=== PATIENT | female | born 1990 | race American Indian/Alaskan Native ===

== ENCOUNTER 2017-01-15 15:47 | Emergency (ER) | payer SELFPAY ==
[2017-01-15 17:44] LABS: Bilirubin,Urine NEG (Negative); Blood,Urine MOD (Negative); Ketones,Urine NEG (Negative); Leukocyte Esterase,Urine NEG (Negative); Mucus,Urine FEW /HPF; Nitrite,Urine NEG (Negative); Protein,Urine <15 mg/dL mg/dL (Negative); Urobilinogen,Urine < 2.0 mg/dL (<2.0)
[2017-01-16] MEDS ORDERED: TYLENOL PO ONE (01:26)
[2017-01-16] MEDS ORDERED: MOTRIN PO ONE (01:26)
--- NOTE | 2017-01-16 01:27 | Emergency Department Report ---
ED General Adult HPI - General Chief complaint: Urogenital-Female Stated complaint: LT SIDE/HIP PAIN Time Seen by Provider: 01/16/17 01:19 Source: patient, RN notes reviewed Mode of arrival: Ambulatory Limitations: No Limitations - History of Present Illness Initial comments: This is a 26-year-old female. She is previously unknown to me. She does not have a primary care doctor. She denies chronic medical conditions. She presents to the ER with left lower quadrant pain and left groin pain for the past 2-3 days. The patient is described as pressure-like in nature. It does not radiate anywhere. It increases with palpation the left lower quadrant, somewhat increases when she rotates her left hip internally and externally. There is no right lower quadrant pain. Denies dysuria, urinary hesitancy, urinary frequency. Admits to clearish vaginal discharge. There is no nausea, vomiting or diarrhea. There is no chest pain or shortness of breath. The patient reports being sexually active with one male partner, she denies a history of gonorrhea and/or Chlamydia. -: Gradual Location: pelvis Severity scale (0 -10): 5 Quality: aching Consistency: intermittent Improves with: rest Worsens with: movement Associated Symptoms: denies: confusion, chest pain, cough, diaphoresis, fever/ chills, headaches, loss of appetite, malaise, nausea/vomiting, rash, seizure, shortness of breath, syncope, weakness - Related Data Previous Rx's Medication Instructions Recorded Last Taken Type Ketorolac [Toradol] 10 mg PO Q6H PRN #20 tablet 01/16/17 Unknown Rx Ondansetron [Zofran Odt] 4 mg PO QID PRN #20 tab.rapdis 01/16/17 Unknown Rx Allergies Allergy/AdvReac Type Severity Reaction Status Date / Time No Known Allergies Allergy Unverified 01/15/17 17:03 ED Review of Systems ROS: Stated complaint: LT SIDE/HIP PAIN Other details as noted in HPI Constitutional: denies: fever Eyes: denies: vision change ENT: denies: epistaxis Respiratory: denies: cough Cardiovascular: denies: chest pain Gastrointestinal: abdominal pain Genitourinary: discharge Musculoskeletal: denies: back pain Skin: denies: lesions Neurological: denies: weakness Psychiatric: denies: anxiety ED Past Medical Hx - Past Medical History Previous Medical History?: No - Surgical History Additional Surgical History: 3 C-Sections - Social History Smoking Status: Never Smoker Substance Use Type: None - Medications Home Medications: Home Medications Medication Instructions Recorded Confirmed Last Taken Type Ketorolac [Toradol] 10 mg PO Q6H PRN #20 tablet 01/16/17 Unknown Rx Ondansetron [Zofran Odt] 4 mg PO QID PRN #20 tab.rapdis 01/16/17 Unknown Rx ED Physical Exam - General Limitations: No Limitations General appearance: alert, in no apparent distress - Head Head exam: Present: atraumatic, normocephalic - Eye Eye exam: Present: normal appearance, EOMI. Absent: nystagmus - ENT ENT exam: Present: normal exam, normal orophraynx, mucous membranes moist, normal external ear exam - Neck Neck exam: Present: normal inspection, full ROM. Absent: tenderness, meningismus - Respiratory Respiratory exam: Present: normal lung sounds bilaterally. Absent: respiratory distress, wheezes, rales, rhonchi, stridor, chest wall tenderness, accessory muscle use, decreased breath sounds, prolonged expiratory - Cardiovascular Cardiovascular Exam: Present: regular rate, normal rhythm, normal heart sounds. Absent: bradycardia, tachycardia, irregular rhythm, systolic murmur, diastolic murmur, rubs, gallop - GI/Abdominal GI/Abdominal exam: Present: soft, tenderness (there is minimal left lower quadrant tenderness to deep palpation. There is no right lower quadrant tenderness. There is no rebound, guarding or peritoneal signs.), normal bowel sounds. Absent: distended, guarding, rebound, rigid, organomegaly, bruit, pulsatile mass, hernia - External exam: Present: normal external exam Speculum exam: Present: normal speculum exam. Absent: cervical discharge, vaginal bleeding Bi-manual exam: Present: normal bi-manual exam, adnexal tenderness (there is left-sided adnexal tenderness.), other (during the gynecologic examination, I am escorted by ER nurse Genoveva Barger). Absent: cervical motion tendernes - Extremities Exam Extremities exam: Present: normal inspection, full ROM, normal capillary refill , other (patient has full active and passive range of motion of the bilateral hips.). Absent: tenderness, pedal edema, joint swelling, calf tenderness - Back Exam Back exam: Present: normal inspection, full ROM. Absent: tenderness, CVA tenderness (R), CVA tenderness (L), muscle spasm, paraspinal tenderness, vertebral tenderness - Neurological Exam Neurological exam: Present: alert, oriented X3, normal gait, other (Extraocular movements intact. Tongue midline. No facial droop. Facial sensation intact to light touch in the V1, V2, V3 distribution bilaterally. 5 and 5 strength in 4 extremities.. Sensation is intact to light touch in 4 extremities.). Absent : motor sensory deficit - Psychiatric Psychiatric exam: Present: normal affect, normal mood - Skin Skin exam: Present: warm, dry, intact, normal color. Absent: rash ED Course Vital Signs 01/15/17 01/15/17 01/16/17 16:57 22:56 00:05 Temperature 98.8 F 98.2 F Pulse Rate 88 70 76 Respiratory 18 18 16 Rate Blood Pressure 116/76 171/66 Blood Pressure 113/64 [Right] O2 Sat by Pulse 100 100 100 Oximetry 01/16/17 01/16/17 02:00 03:41 Temperature Pulse Rate 78 74 Respiratory 16 16 Rate Blood Pressure Blood Pressure 118/72 116/74 [Right] O2 Sat by Pulse 98 98 Oximetry - Reevaluation(s) Reevaluation #1: 01/16/17 02:29 differential diagnosis: , constipation, urinary tract infection, ovarian cyst, ovarian torsion, pelvic inflammatory disease, endometriosis Assessment and plan: 26-year-old female with left groin pain, left adnexal tenderness, left lower quadrant tenderness. She is afebrile with reassuring vital signs. She is not . Her urinalysis is not consistent with urinary tract infection. There is no right lower quadrant tenderness, rebound or guarding. Her clinical history is not consistent with constipation, she reports defecating and passing gas normally. I think pelvic inflammatory disease is unlikely, she does not have cervical motion tenderness, and she does not have cervical discharge. Her wet prep is negative. I think ovarian torsion is unlikely, she does not have exquisite tenderness. Most likely has ovarian cyst. She will be treated symptomatically. Transvaginal ultrasound with duplex interrogation is ordered. Results are pending. Reevaluation #2: 01/16/17 03:13 Transvaginal ultrasound demonstrates complex ovarian mass and lesions. The patient feels improved after her pain medication. She will be discharged with pain medication, a copy of her ultrasound report, and she is instructed to follow up with outpatient gynecology. Return precautions are extensively reviewed. ED Medical Decision Making - Lab Data Vital Signs 01/15/17 01/15/17 01/16/17 16:57 22:56 00:05 Temperature 98.8 F 98.2 F Pulse Rate 88 70 76 Respiratory 18 18 16 Rate Blood Pressure 116/76 171/66 Blood Pressure 113/64 [Right] O2 Sat by Pulse 100 100 100 Oximetry Lab Results 01/15/17 Range/Units 17:29 Urine Color Yellow (Yellow) Urine Turbidity Clear (Clear) Urine pH 6.0 (5.0-7.0) Ur Specific [place] 1.018 (1.003-1.030) Urine Protein <15 mg/dl (Negative) mg/dL Urine Glucose (UA) Neg (Negative) mg/dL Urine Ketones Neg (Negative) mg/dL Urine Blood Mod (Negative) Urine Nitrite Neg (Negative) Ur Reducing Substances Not Reportable Urine Bilirubin Neg (Negative) Urine Ictotest Not Reportable Urine Urobilinogen < 2.0 (<2.0) mg/dL Ur Leukocyte Esterase Neg (Negative) Urine WBC (Auto) 1.0 (0.0-6.0) /HPF Urine RBC (Auto) 1.0 (0.0-6.0) /HPF U Epithel Cells (Auto) 7.0 (0-13.0) /HPF Urine Mucus Few /HPF Urine HCG, Qual Negative (Negative) - Radiology Data Radiology results: report reviewed, image reviewed Transvaginal ultrasound: The right ovary appears to be within normal limits. The left ovary is 5 x 4 x 4.7 cm. 2 complex mass lesions noted within the left ovary. The largest is 3.7 cm. The other measures 2.7 cm. They are partially rounded but also partially irregular. Somewhat hypoechoic, they have internal echoes and mixed internal echogenicity, possibly some internal septations. Therefore, they're not simple cyst. May be hemorrhagic or debris filled cyst. Or mixed cystic and solid lesions of other etiologies are not excluded. Moderate amount of nonspecific free fluid noted in the pelvis. No ultrasound abnormalities noted. Critical care attestation.: If time is entered above; I have spent that time in minutes in the direct care of this critically ill patient, excluding procedure time. ED Disposition Clinical Impression: Pelvic pain Disposition: DISCHARGED TO HOME OR SELFCARE Is pt being admited?: No Does the pt Need Aspirin: No Condition: Stable Instructions: Ovarian Cyst (ED) Additional Instructions: Take the pain medication as directed. Take nausea medication as directed. Cultures was sent today, results of the available in the next 3-5 days. Have a gynecology specialist contact the medical records department to obtain ultrasound results. Have a real estate processor contact medical records department to obtain culture results. I recommend that he follow-up with a real estate processor within the next 10-14 days. Not following up in a timely fashion may result in undiagnosed tumor/cancer/ malignancy. Return to the ER right away with new pain, worsened pain, migration of pain, fevers or chills, intractable nausea or vomiting, inability to tolerate liquid feeds. Prescriptions: Ketorolac [Toradol] 10 mg PO Q6H PRN #20 tablet PRN Reason: Pain Ondansetron [Zofran Odt] 4 mg PO QID PRN #20 tab.rapdis PRN Reason: Nausea Referrals: PRIMARY CARE, [Primary Care Provider] - 3-5 Days [facility] [Provider Group] - 3-5 Days [facility] [Provider Group] - 3-5 Days [facility] [Provider Group] - 3-5 Days Forms: Work/School Release Form(ED)
[2017-01-16] MEDS ORDERED: TORADOL IM ONE (01:42)
--- NOTE | 2017-01-16 03:09 | Ultrasound Report ---
FINAL REPORT PROCEDURE: ULTRASOUND PELVIS TRANSVAGINAL WITH DOPPLER TECHNIQUE: Real-time transvaginal sonography in multiple planes of the pelvis was performed with image documentation. Grayscale, color flow Doppler imaging and velocity spectral waveform analysis of the ovaries was employed (duplex imaging). CPT 41649 and 72585 HISTORY: Left pelvic pain COMPARISON: No prior studies are available for comparison. FINDINGS: The uterus measures 9.2 x 4.5 x 0.3 centimeters. The endometrium measures 0.31 centimeters. The uterus shows no ultrasound abnormality. The right ovary measures 3.2 x 2.3 x 2.5 centimeters and shows no ultrasound abnormality. Small normal-appearing follicles are seen in the right ovary. The left ovary measures 5.1 x 4.5 x 4.7 centimeters. Two complex mass lesions are noted within the left ovary. The largest measures 3.7 centimeters. The other measures 2.7 centimeters. These appear partially rounded but are also partially irregular. They are somewhat hypoechoic but have internal echoes and mixed internal echogenicity and possibly some internal septations. Therefore these are not simple cysts. These could be hemorrhage or debris-filled cyst. However endometriomas or mixed cystic and solid lesions of other etiology in the left ovary are not excluded. There is a moderate amount of nonspecific free fluid in the pelvis. IMPRESSION: 1. There are 2 moderate to large complex mass lesions in the left ovary. The largest measures 3.7 centimeters and the other measures 2.7 centimeters. These are generally slightly hypoechoic but have mixed internal echogenicity. They could represent cysts with internal debris or internal hemorrhage. However endometriomas or mixed cystic and solid lesion lesions of other etiology are not excluded. Follow-up and/or further evaluation recommended as clinically determined. 2. There is a small to moderate amount of nonspecific free fluid in the pelvis. 3. The right ovary and the uterus show no ultrasound abnormality.
--- NOTE | 2017-01-16 03:19 | Ultrasound Report ---
FINAL REPORT PROCEDURE: ULTRASOUND PELVIS TRANSABDOMINAL WITH DOPPLER TECHNIQUE: Real-time transabdominal sonography in multiple planes of the pelvis was performed with image documentation. Grayscale, color flow Doppler imaging and velocity spectral waveform analysis of the ovaries was employed (duplex imaging). CPT 50581 and 33154 HISTORY: left pelvic pain COMPARISON: No prior studies are available for comparison. FINDINGS: The uterus measures 9.2 x 4.5 x 0.3 centimeters. The endometrium measures 0.31 centimeters. The uterus shows no ultrasound abnormality. The right ovary measures 3.2 x 2.3 x 2.5 centimeters and shows no ultrasound abnormality. Small normal-appearing follicles are seen in the right ovary. The left ovary measures 5.1 x 4.5 x 4.7 centimeters. Two complex mass lesions are noted within the left ovary. The largest measures 3.7 centimeters. The other measures 2.7 centimeters. These appear partially rounded but are also partially irregular. They are somewhat hypoechoic but have internal echoes and mixed internal echogenicity and possibly some internal septations. Therefore these are not simple cysts. These could be hemorrhage or debris-filled cyst. However endometriomas or mixed cystic and solid lesions of other etiology in the left ovary are not excluded. There is a moderate amount of nonspecific free fluid in the pelvis. IMPRESSION: 1. There are 2 moderate to large complex mass lesions in the left ovary. The largest measures 3.7 centimeters and the other measures 2.7 centimeters. These are generally slightly hypoechoic but have mixed internal echogenicity. They could represent cysts with internal debris or internal hemorrhage. However endometriomas or mixed cystic and solid lesion lesions of other etiology are not excluded. Follow-up and/or further evaluation recommended as clinically determined. 2. There is a small to moderate amount of nonspecific free fluid in the pelvis. 3. The right ovary and the uterus show no ultrasound abnormality.
[2017-01-16 03:42] VITALS: BP 116/74
== END 2017-01-16 03:41 | disposition home or self-care (01) ==
LOC: ED 15:47
DX: R10.2 Pelvic and perineal pain (principal)
CPT/HCPCS: 76830; 81001; 81025; 87210; 87591; 93975; 96372; 99284; J1885

== ENCOUNTER 2017-07-03 17:15 | Emergency (ER) | payer SELFPAY ==
[2017-07-03 20:08] LABS: Basophils % (Auto) 0.5 % (0.0-1.8); Eosinophils % (Auto) 1.4 % (0.0-4.3); Hematocrit 34.9 % (30.3-42.9); Hemoglobin 11.8 gm/dl (10.1-14.3); Mean Corpuscular HGB Conc 34 % (30-34); Mean Corpuscular Hemoglobin 30 pg (28-32); Mean Corpuscular Volume 89 fl (79-97); Platelet Count 315 K/mm3 (140-440); Red Blood Count 3.93 M/mm3 (3.65-5.03); Red Cell Distribution Width 17.2 % (13.2-15.2); White Blood Count 6.2 K/mm3 (4.5-11.0)
[2017-07-03 20:26] LABS: Alanine Aminotransferase 10 units/L (7-56); Albumin 3.7 g/dL (3.9-5); Albumin/Globulin Ratio 1.1 %; Alkaline Phosphatase 73 units/L (35-129); Anion Gap 18 mmol/L; Blood Urea Nitrogen 9 mg/dL (7-17); Calcium 9.1 mg/dL (8.4-10.2); Carbon Dioxide 24 mmol/L (22-30); Chloride 97.9 mmol/L (98-107); Glucose 66 mg/dL (65-100); Lipase 20 units/L (13-60); Potassium 3.7 mmol/L (3.6-5.0); Sodium 136 mmol/L (137-145); Total Protein 7.1 g/dL (6.3-8.2)
[2017-07-03 21:16] LABS: Bilirubin,Urine NEG (Negative); Blood,Urine NEG (Negative); Ketones,Urine NEG (Negative); Leukocyte Esterase,Urine NEG (Negative); Mucus,Urine 2+ /HPF; Nitrite,Urine NEG (Negative); Protein,Urine <15 mg/dL mg/dL (Negative); Urobilinogen,Urine < 2.0 mg/dL (<2.0)
[2017-07-03] MEDS ORDERED: TYLENOL PO ONE (23:34)
--- NOTE | 2017-07-03 23:34 | Emergency Department Report ---
ED Female HPI - General Chief complaint: Abdominal Pain Stated complaint: URINATING ALOT, ABDOMINAL PAIN Time Seen by Provider: 07/03/17 23:24 Source: patient Mode of arrival: Ambulatory Limitations: No Limitations - History of Present Illness Initial comments: 26-year-old female past medical history left ovarian cyst presents with complaint of 2 weeks of suprapubic pressure and intermittent lower back pain. Patient denies any vaginal bleeding denies fevers chills, occasional nausea but no vomiting. States she has been urinating more frequently than usual. Patient is awake alert and oriented 3 not in acute distress. States she was taking Motrin with minimal relief of her pain. Patient states her last menstrual period was in April and she has not taken any tests and is not sure if she is currently MD Complaint: pelvic pain Onset/Timin -: week(s) Location: suprapubic Severity: mild Severity scale (0 -10): 3 Quality: cramping Consistency: intermittent Are you Now?: Yes Last Menstrual Period: 04/06/17 EDC: 01/11/18 Associated Symptoms: dysuria - Related Data Previous Rx's Medication Instructions Recorded Last Taken Type Ketorolac [Toradol] 10 mg PO Q6H PRN #20 tablet 01/16/17 Unknown Rx Ondansetron [Zofran Odt] 4 mg PO QID PRN #20 tab.rapdis 01/16/17 Unknown Rx Acetaminophen [Acetaminophen TAB] 500 mg PO Q6HR PRN #30 tablet 07/04/17 Unknown Rx Doxylamine Succinate [Unisom] 25 mg PO QHS PRN #30 tablet 07/04/17 Unknown Rx Nitrofurantoin Dodge/M-Cryst 100 mg PO Q12HR #14 capsule 07/04/17 Unknown Rx [Macrobid CAP] Vit No.130/Iron/FA 1 each PO QDAY #30 tablet 07/04/17 Unknown Rx [ Tablet] Pyridoxine HCl 25 mg PO Q8H PRN #90 tablet 07/04/17 Unknown Rx Allergies Allergy/AdvReac Type Severity Reaction Status Date / Time No Known Allergies Allergy Unverified 01/15/17 17:03 ED Review of Systems ROS: Stated complaint: URINATING ALOT, ABDOMINAL PAIN Other details as noted in HPI Constitutional: denies: chills, fever Eyes: denies: eye pain, eye discharge, vision change ENT: denies: ear pain, throat pain Respiratory: denies: cough, shortness of breath, wheezing Cardiovascular: denies: chest pain, palpitations Endocrine: no symptoms reported Gastrointestinal: abdominal pain (some crampy lower abdominal pain). denies: nausea, diarrhea Genitourinary: frequency (increased urinary frequency). denies: urgency, dysuria, discharge Musculoskeletal: denies: back pain, joint swelling, arthralgia Skin: denies: rash, lesions Neurological: denies: headache, weakness, paresthesias Psychiatric: denies: anxiety, depression Hematological/Lymphatic: denies: easy bleeding, easy bruising ED Past Medical Hx - Past Medical History Previous Medical History?: Yes Additional medical history: LEFT OVARIAN CYST - Surgical History Past Surgical History?: Yes Additional Surgical History: 3 C-Sections - Social History Smoking Status: Never Smoker Substance Use Type: Alcohol - Medications Home Medications: Home Medications Medication Instructions Recorded Confirmed Last Taken Type Ketorolac [Toradol] 10 mg PO Q6H PRN #20 tablet 01/16/17 Unknown Rx Ondansetron [Zofran Odt] 4 mg PO QID PRN #20 tab.rapdis 01/16/17 Unknown Rx Acetaminophen [Acetaminophen TAB] 500 mg PO Q6HR PRN #30 tablet 07/04/17 Unknown Rx Doxylamine Succinate [Unisom] 25 mg PO QHS PRN #30 tablet 07/04/17 Unknown Rx Nitrofurantoin Dodge/M-Cryst 100 mg PO Q12HR #14 capsule 07/04/17 Unknown Rx [Macrobid CAP] Vit No.130/Iron/FA 1 each PO QDAY #30 tablet 07/04/17 Unknown Rx [ Tablet] Pyridoxine HCl 25 mg PO Q8H PRN #90 tablet 07/04/17 Unknown Rx ED Physical Exam - General Limitations: No Limitations General appearance: alert, in no apparent distress - Head Head exam: Present: atraumatic, normocephalic - Eye Eye exam: Present: normal appearance, PERRL, EOMI - ENT ENT exam: Present: mucous membranes moist - Neck Neck exam: Present: normal inspection, full ROM - Respiratory Respiratory exam: Present: normal lung sounds bilaterally. Absent: respiratory distress - Cardiovascular Cardiovascular Exam: Present: regular rate, normal rhythm. Absent: systolic murmur, diastolic murmur, rubs, gallop - GI/Abdominal GI/Abdominal exam: Present: tenderness (some reproducible suprapubic pain on exam), normal bowel sounds - External exam: Present: normal external exam Speculum exam: Present: normal speculum exam Bi-manual exam: Present: normal bi-manual exam - Extremities Exam Extremities exam: Present: normal inspection - Back Exam Back exam: Present: normal inspection - Neurological Exam Neurological exam: Present: alert, oriented X3, CN II-XII intact, normal gait - Psychiatric Psychiatric exam: Present: normal affect, normal mood - Skin Skin exam: Present: warm, dry, intact, normal color. Absent: rash ED Course Vital Signs 07/03/17 07/03/17 07/03/17 19:44 22:44 23:00 Temperature 98.7 F 97.7 F Pulse Rate 88 72 Respiratory 20 16 Rate Blood Pressure 133/78 109/74 O2 Sat by Pulse 100 100 100 Oximetry 07/03/17 07/04/17 07/04/17 23:30 00:20 01:20 Temperature Pulse Rate 74 Respiratory 14 18 18 Rate Blood Pressure 125/70 O2 Sat by Pulse 100 98 Oximetry ED Medical Decision Making - Lab Data Result diagrams: 07/03/17 19:52 07/03/17 23:37 - Medical Decision Making A/P: Lower abdominal pain during , subchorionic bleed 1-patient has single live intrauterine with subchorionic bleed. I informed the patient that management for this is expectant and may indicate a possible miscarriage [email or web address] -[email or web address]-sqkotscqqsdudb-ypd-fyjgextzmi-[email or web address]_ [email or web address]%[email or web address]%20pregnancy&[email or web address]# [id number]. I advised patient to return to the ED for heavy vaginal bleeding nausea vomiting fevers chills or increased abdominal pain. Patient can take Tylenol for pain. 2-urinalysis unremarkable but will treat patient empirically due to complaint of increased urinary frequency 3-follow-up with [facility] 4- CBC unremarkable, blood type O+ no need for RhoGAM Critical care attestation.: If time is entered above; I have spent that time in minutes in the direct care of this critically ill patient, excluding procedure time. ED Disposition Clinical Impression: Abdominal pain during in first trimester Disposition: DC- TO HOME OR SELFCARE Is pt being admited?: No Does the pt Need Aspirin: No Condition: Stable Instructions: Abdominal Pain (ED), Threatened Miscarriage (ED), (ED) Prescriptions: Doxylamine Succinate [Unisom] 25 mg PO QHS PRN #30 tablet PRN Reason: Nausea Acetaminophen [Acetaminophen TAB] 500 mg PO Q6HR PRN #30 tablet PRN Reason: Pain Nitrofurantoin Dodge/M-Cryst [Macrobid CAP] 100 mg PO Q12HR #14 capsule Vit No.130/Iron/FA [ Tablet] 1 each PO QDAY #30 tablet Pyridoxine HCl 25 mg PO Q8H PRN #90 tablet PRN Reason: Nausea Referrals: [facility] [Provider Group] - 3-5 Days [facility] [Provider Group] - 3-5 Days Forms: Accompanied Note, Work/School Release Form(ED) Time of Disposition: 02:47
[2017-07-04 00:11] VITALS: BP 125/70
[2017-07-04 00:17] LABS: Blood Urea Nitrogen 8 mg/dL (7-17); Calcium 8.8 mg/dL (8.4-10.2); Carbon Dioxide 21 mmol/L (22-30); Chloride 98.6 mmol/L (98-107); Glucose 80 mg/dL (65-100); Potassium 3.6 mmol/L (3.6-5.0); Sodium 133 mmol/L (137-145)
[2017-07-04 00:18] LABS: Anion Gap 17 mmol/L
--- NOTE | 2017-07-04 00:51 | Ultrasound Report ---
FINAL REPORT PROCEDURE: US OB transabdominal and transvaginal TECHNIQUE: Real-time transabdominal and transvaginal sonography of the uterus, placenta, amniotic fluid, adnexa, and fetus was performed with image documentation. Measurements were obtained to determine age/size. M-mode Doppler was used to document heartbeat. CPT 54354 and 59856 HISTORY: preg+, lower ab pain, hx of ovarian cysts LMP April COMPARISON: No prior studies are available for comparison. FINDINGS: ADDITIONAL GESTATION: None. CRL: 45 mm, which corresponds to a gestational age of: 11 weeks, 3 days. Yolk Sac: Normal. Embryonic Cardiac Activity: 166 beats per minute Gestational Sac: There is a small subchorionic bleed this measures 4.1 centimeters. Amniotic fluid: Normal. Cervix: Normal. Right Ovary: Normal. Left Ovary: Complex cyst measures 14 millimeters Estimated delivery date: 01/20/2018 Uterus and adnexa: Normal. IMPRESSION: 1. Single live intrauterine gestation at approximately 11 weeks, 3 days. 2. EDC by US 01/20/2018 3. Complete anatomic survey at 18-20 weeks suggested.
--- NOTE | 2017-07-04 00:53 | Ultrasound Report ---
FINAL REPORT PROCEDURE: US OB transabdominal and transvaginal TECHNIQUE: Real-time transabdominal and transvaginal sonography of the uterus, placenta, amniotic fluid, adnexa, and fetus was performed with image documentation. Measurements were obtained to determine age/size. M-mode Doppler was used to document heartbeat. CPT 13323 and 57583 HISTORY: preg+, lower ab pain, hx of ovarian cysts LMP April COMPARISON: No prior studies are available for comparison. FINDINGS: ADDITIONAL GESTATION: None. CRL: 45 mm, which corresponds to a gestational age of: 11 weeks, 3 days. Yolk Sac: Normal. Embryonic Cardiac Activity: 166 beats per minute Gestational Sac: There is a small subchorionic bleed this measures 4.1 centimeters. Amniotic fluid: Normal. Cervix: Normal. Right Ovary: Normal. Left Ovary: Complex cyst measures 14 millimeters Estimated delivery date: 01/20/2018 Uterus and adnexa: Normal. IMPRESSION: 1. Single live intrauterine gestation at approximately 11 weeks, 3 days. 2. EDC by US 01/20/2018 3. Complete anatomic survey at 18-20 weeks suggested.
[2017-07-04] MEDS ORDERED: TYLENOL PO ONE (01:06)
== END 2017-07-04 03:30 | disposition home or self-care (01) ==
LOC: ED 17:15
DX: O26.891 Other specified pregnancy related conditions, first trimester (principal); R10.9 Unspecified abdominal pain; M54.5 Low back pain; Z3A.00 Weeks of gestation of pregnancy not specified
CPT/HCPCS: 36415; 76801; 76817; 80048; 80053; 81001; 83690; 84702; 84703; 85025; 86850; 86900; 86901; 87086; 87210; 87591; 99284

== ENCOUNTER 2017-11-30 09:02 | Emergency (ER) | payer MEDICAID ==
[2017-11-30 09:21] VITALS: BP 124/70
--- NOTE | 2017-11-30 09:34 | Emergency Department Report ---
HPI - General Chief Complaint: Upper Respiratory Infection Time Seen by Provider: 11/30/17 09:34 - HPI HPI: Patient reports flulike symptoms, body ache, chills, congestion and that she is 33 weeks . Patient said that she is pain explosive the flu from her 2 children and another family member. She denies shortness of breath or chest pain. Reports cough and is worse at night. Reports nasal drainage and congestion. Denies any headache. Reports of body ache and at 10 and aching. No [id number] medication taken. Patient sees abiquiu [facility] [employer] OFFICER for [facility] [employer]Y OFFICER follow-up. She has no -related issues to include abdominal pain, back pain, vaginal bleeding or discharge. She has no urinary frequency, urgency or burning. Patient reports that she would like to be treated for the flu because she has been exposed from 3 people. She says she had a fever and she took Tylenol this morning. Her temperature now is 98.7 and she is tachycardic at 1: 15. Denies any nausea or vomiting. ED Past Medical Hx - Past Medical History Previous Medical History?: Yes Additional medical history: LEFT OVARIAN CYST - Surgical History Past Surgical History?: Yes Additional Surgical History: 3 C-Sections - Family History Family history: no significant - Social History Smoking Status: Never Smoker Substance Use Type: None - Medications Home Medications: Home Medications Medication Instructions Recorded Confirmed Last Taken Type Ketorolac [Toradol] 10 mg PO Q6H PRN #20 tablet 01/16/17 Unknown Rx Ondansetron [Zofran Odt] 4 mg PO QID PRN #20 tab.rapdis 01/16/17 Unknown Rx Acetaminophen [Acetaminophen TAB] 500 mg PO Q6HR PRN #30 tablet 07/04/17 Unknown Rx Doxylamine Succinate [Unisom] 25 mg PO QHS PRN #30 tablet 07/04/17 Unknown Rx Nitrofurantoin [place]/M-Cryst 100 mg PO Q12HR #14 capsule 07/04/17 Unknown Rx [Macrobid CAP] Vit No.130/Iron/Folic 1 each PO QDAY #30 tablet 07/04/17 Unknown Rx [ Tablet] Pyridoxine HCl (Vitamin B6) 25 mg PO Q8H PRN #90 tablet 07/04/17 Unknown Rx [Pyridoxine HCl] Acetaminophen [Tylenol] 500 mg PO Q6HR PRN #12 tablet 11/30/17 Unknown Rx Oseltamivir [Tamiflu] 75 mg PO BID 5 Days #10 cap 11/30/17 Unknown Rx guaiFENesin [Mucinex] 600 mg PO Q12H PRN #10 tab.er.12h 11/30/17 Unknown Rx ED Review of Systems ROS: Stated complaint: FLU LIKE SYMPTOMS Other details as noted in HPI Comment: All other systems reviewed and negative Constitutional: no symptoms reported ENT: congestion. denies: ear pain, throat pain, dental pain, hearing loss Respiratory: cough. denies: orthopnea, shortness of breath, SOB with exertion, SOB at rest, stridor, wheezing Cardiovascular: denies: chest pain, palpitations, edema, syncope Gastrointestinal: denies: abdominal pain, nausea, vomiting, diarrhea Genitourinary: denies: urgency, dysuria, frequency, hematuria, discharge Musculoskeletal: myalgia. denies: back pain, joint swelling, arthralgia Skin: denies: rash Neurological: denies: headache Physical Exam - Physical Exam Vital Signs: Vital Signs 11/30/17 11/30/17 09:21 09:23 Temperature 98.7 F 98.7 F Pulse Rate 115 H 115 H Respiratory 20 18 Rate Blood Pressure 124/70 Blood Pressure 124/70 [Right] O2 Sat by Pulse 100 98 Oximetry Vital Signs 11/30/17 11/30/17 11/30/17 09:21 09:23 10:19 Temperature 98.7 F 98.7 F Pulse Rate 115 H 115 H 100 H Respiratory 20 18 Rate Blood Pressure 124/70 Blood Pressure 124/70 [Right] O2 Sat by Pulse 100 98 Oximetry General: This is a 27-year-old female well-nourished well-developed in no acute distress. Physical Exam: Head: Normocephalic atraumatic Ears:BIateral TM congested without erythema and loss of bony landmarks. James EAC with normal exam. No mastoid bone tenderness. Mouth: Moist, no pharyngeal erythema or exudate . No tonsillar erythema or exudate. UVULA midline and oral airways patent. No peritonsillar abscess Neck: Nontender to palpate, supple, normal range of motion. No adenopathy. No c- spine tenderness. Nose: Bilateral nasal mucosa congested with clear drainage. Maxillary and frontal sinuses non-tender to palpate. Eyes: Bilateral Sclerae and conjunctiva without injection. Bilateral pupils equal and reactive to light. Bilateral lids are normal. Normal accommodation.BEOMI Extremity: No Clubbing, cyanosis or edema. +2 pulses all extremities and no neurovascular compromise Abdomen: Protruding, nontender to palpation in all quadrants. Normal bowel sounds. Lungs: Clear to auscultate bilaterally, no rhonchi wheezes or rales. Normal work of breathing and no chest wall tenderness. CV: S1, S2. Tachycardic at 115 and regular rhythm ,negative murmur. Capillary refill is less than 3 seconds Skin: Clean dry and intact, no rashes or lesions Psych: Normal mood and behavior ED Course Vital Signs 11/30/17 11/30/17 09:21 09:23 Temperature 98.7 F 98.7 F Pulse Rate 115 H 115 H Respiratory 20 18 Rate Blood Pressure 124/70 Blood Pressure 124/70 [Right] O2 Sat by Pulse 100 98 Oximetry Vital Signs 11/30/17 11/30/17 11/30/17 09:21 09:23 10:19 Temperature 98.7 F 98.7 F Pulse Rate 115 H 115 H 100 H Respiratory 20 18 Rate Blood Pressure 124/70 Blood Pressure 124/70 [Right] O2 Sat by Pulse 100 98 Oximetry - Reevaluation(s) Reevaluation #1: 11/30/17 10:24 Patient stable throughout ED course. She is able to tolerate oral liquids without any difficulties. Pulse is now 100 ED Medical Decision Making - Medical Decision Making ED course: Patient reports flulike symptoms with chills and fever after being expose to the flu from 3 different individuals. Patient with nasal congestion and erythema, bilateral TM congested. Lungs sounds are normal. Her temperature is 98.7. I discussed patient I will treat her for influenza since she is pain exposed to the flu. I discussed with her that I will put her on Tamiflu and she can take Tylenol for pain and fever and Mucinex for congestion. I also discussed with her that she needs to follow-up with her [facility]AF[facility]Y OFFICER at [facility] in 2 days for follow-up visit. Patient was undescended diagnosis and treatment plan and needed follow-up. Her heart rate is now down to 100 and she remains afebrile. She is tolerating oral fluids in the emergency room. She has a prescription for Tamiflu, Mucinex and acetaminophen Critical care attestation.: If time is entered above; I have spent that time in minutes in the direct care of this critically ill patient, excluding procedure time. ED Disposition Clinical Impression: Acute viral syndrome, Upper respiratory infection with cough and congestion, Musculoskeletal pain Disposition: TO HOME OR SELFCARE Is pt being admited?: No Does the pt Need Aspirin: No Condition: Stable Instructions: Acute Cough (ED), Viral Syndrome in Children (ED), Upper Respiratory Infection (ED) Additional Instructions: Please increase her fluid intake to 3 L of fluid daily to include cranberry juice, Kasia juice and water Please call your [facility] [employer]Y OFFICER office on Saturday to schedule follow-up visit for viral syndrome Take Tylenol as prescribed for fever and/or pain A Tamiflu as prescribed. Mucinex to help with nasal congestion and also use nasal saline flush to flush and nostrils. Prescriptions: Acetaminophen [Tylenol] 500 mg PO Q6HR PRN #12 tablet PRN Reason: fever and/or pain guaiFENesin [Mucinex] 600 mg PO Q12H PRN #10 tab.er.12h PRN Reason: Congestion Oseltamivir [Tamiflu] 75 mg PO BID 5 Days #10 cap Referrals: [facility] [Provider Group] - 12/02/17 Forms: Accompanied Note, Work/School Release Form(ED)
== END 2017-11-30 10:48 | disposition home or self-care (01) ==
LOC: ED 09:02
DX: O99.513 Diseases of the respiratory system complicating pregnancy, third trimester (principal); J06.9 Acute upper respiratory infection, unspecified; B34.9 Viral infection, unspecified; M79.1 Myalgia; Z3A.33 33 weeks gestation of pregnancy
CPT/HCPCS: 99282

== ENCOUNTER 2019-02-17 13:37 | Emergency (ER) | payer BC, MEDICARE ==
[2019-02-17 14:37] VITALS: BP 122/68
--- NOTE | 2019-02-17 14:38 | Emergency Department Report ---
Chief Complaint: Abdominal Pain Stated Complaint: LOWER ABD PAIN/TOOTH PAIN Time Seen by Provider: 02/17/19 14:35 - HPI History of Present Illness: This is a 28 y.o. female that presents to the ER with dental pain, bilateral flank pain, N/V for 1 week. - Exam Vital Signs: Vital Signs 02/17/19 14:36 Temperature 98.7 F Pulse Rate 82 Respiratory 16 Rate Blood Pressure 122/68 O2 Sat by Pulse 100 Oximetry MSE screening note: Focused history and physical exam performed. Due to findings the following was ordered: labs ED Disposition for MSE Condition: Stable Instructions: Abdominal Pain (ED)
[2019-02-17 15:04] LABS: Basophils % (Auto) 1.2 % (0.0-1.8); Eosinophils # (Auto) 0.1 K/mm3 (0.0-0.4); Eosinophils % (Auto) 3.1 % (0.0-4.3); Hematocrit 38.8 % (30.3-42.9); Hemoglobin 12.7 gm/dl (10.1-14.3); Lymphocytes # (Auto) 1.9 K/mm3 (1.2-5.4); Lymphocytes % (Auto) 48.7 % (13.4-35.0); Mean Corpuscular HGB Conc 33 % (30-34); Mean Corpuscular Volume 94 fl (79-97); Monocytes # (Auto) 0.4 K/mm3 (0.0-0.8); Monocytes % (Auto) 11.4 % (0.0-7.3); Platelet Count 352 K/mm3 (140-440); Red Blood Count 4.13 M/mm3 (3.65-5.03); Red Cell Distribution Width 15.1 % (13.2-15.2)
[2019-02-17 15:20] LABS: Alanine Aminotransferase 13 units/L (7-56); Albumin 3.8 g/dL (3.9-5); BUN/Creatinine Ratio 13; Blood Urea Nitrogen 8 mg/dL (7-17); Calcium 9.4 mg/dL (8.4-10.2); Hemolysis Index 30
[2019-02-17 15:33] LABS: Bilirubin,Urine NEG (Negative); Blood,Urine NEG (Negative); Color,Urine Yellow (Yellow); Protein,Urine <15 mg/dL mg/dL (Negative); RBC,Urine < 1.0 /HPF (0.0-6.0); Urobilinogen,Urine < 2.0 mg/dL (<2.0); WBC,Urine < 1.0 /HPF (0.0-6.0)
--- NOTE | 2019-02-17 16:43 | Emergency Department Report ---
ED Back Pain/Injury HPI - General Chief Complaint: Abdominal Pain Stated Complaint: LOWER ABD PAIN/TOOTH PAIN Time Seen by Provider: 02/17/19 14:35 Source: patient Limitations: No Limitations - History of Present Illness Initial Comments: Patient is a 28-year-old female who comes to the ER today with numerous complaints. First is complaining of dental pain. She states that she has 2 fractured teeth and has just gotten medical insurance and needs to see the dentist. Also patient reports low back pain thinking that she has a urinary tract infection. Last menstrual period started last . She denies any vaginal discharge. She denies any vaginal bleeding. She denies vomiting or diarrhea. Patient does report intermittent nausea. She denies fever. Patient denies any trauma to her back. Patient has been taking [id number] medicines but since she got insurance she wanted to be evaluated. Patient does not have a primary care or dentist at this time. MD Complaint: back pain -: Gradual Similar Symptoms Previously: No - Related Data Previous Rx's Medication Instructions Recorded Last Taken Type Clindamycin [Clindamycin CAP] 150 mg PO Q6HR #40 capsule 02/17/19 Unknown Rx Fluconazole [Diflucan TAB] 150 mg PO ONCE #2 tablet 02/17/19 Unknown Rx Naproxen [Naprosyn] 500 mg PO BID PRN #20 tablet 02/17/19 Unknown Rx Ondansetron [Zofran Odt] 4 mg PO Q8HR PRN #10 tab.rapdis 02/17/19 Unknown Rx Allergies Allergy/AdvReac Type Severity Reaction Status Date / Time amoxicillin AdvReac Hives Verified 02/17/19 13:41 ED Review of Systems ROS: Stated complaint: LOWER ABD PAIN/TOOTH PAIN Other details as noted in HPI Comment: All other systems reviewed and negative ED Past Medical Hx - Past Medical History LEFT OVARIAN CYST Family history: no significant family history ED Back Pain Physical Exam - Exam General: Vital signs noted. No distress. Alert and acting appropriately. Back/Abdomen: No Abdominal Tenderness, No Perithoracic Tenderness, No Perilumbar Tenderness, No Sacroiliac Tenderness, No Flank Tenderness, No Straight Leg Raise Pain Neuro: Yes Normal Sensation, Yes Normal DTR's, Yes Normal Gait, No Motor Weakness ED Course Vital Signs 02/17/19 14:36 Temperature 98.7 F Pulse Rate 82 Respiratory 16 Rate Blood Pressure 122/68 O2 Sat by Pulse 100 Oximetry Ed Back Pain Tests - Tests Tests: Normal UA ED Medical Decision Making - Lab Data Result diagrams: 02/17/19 14:52 02/17/19 14:52 - Medical Decision Making Labs 02/17/19 02/17/19 02/17/19 14:52 14:52 14:52 WBC 3.9 L RBC 4.13 Hgb 12.7 Hct 38.8 MCV 94 MCH 31 MCHC 33 RDW 15.1 Plt Count 352 Lymph % (Auto) 48.7 H [place] % (Auto) 11.4 H Eos % (Auto) 3.1 Baso % (Auto) 1.2 Lymph # 1.9 [place] # 0.4 Eos # 0.1 Baso # 0.0 Seg Neutrophils % 35.6 L Seg Neutrophils # 1.4 L Sodium 141 Potassium 4.1 Chloride 104.1 Carbon Dioxide 26 Anion Gap 15 BUN 8 Creatinine 0.6 L Estimated GFR > 60 BUN/Creatinine Ratio 13 Glucose 89 Calcium 9.4 Total Bilirubin < 0.20 AST 20 ALT 13 Alkaline Phosphatase 121 Total Protein 7.3 Albumin 3.8 L Albumin/Globulin Ratio 1.1 Lipase 18 HCG, Qual Negative Urine Color Urine Turbidity Urine pH Ur Specific [place] Urine Protein Urine Glucose (UA) Urine Ketones Urine Blood Urine Nitrite Urine Bilirubin Urine Urobilinogen Ur Leukocyte Esterase Urine WBC (Auto) Urine RBC (Auto) U Epithel Cells (Auto) 02/17/19 14:56 WBC RBC Hgb Hct MCV MCH MCHC RDW Plt Count Lymph % (Auto) [place] % (Auto) Eos % (Auto) Baso % (Auto) Lymph # [place] # Eos # Baso # Seg Neutrophils % Seg Neutrophils # Sodium Potassium Chloride Carbon Dioxide Anion Gap BUN Creatinine Estimated GFR BUN/Creatinine Ratio Glucose Calcium Total Bilirubin AST ALT Alkaline Phosphatase Total Protein Albumin Albumin/Globulin Ratio Lipase HCG, Qual Urine Color Yellow Urine Turbidity Clear Urine pH 6.0 Ur Specific [place] 1.018 Urine Protein <15 mg/dl Urine Glucose (UA) Neg Urine Ketones Neg Urine Blood Neg Urine Nitrite Neg Urine Bilirubin Neg Urine Urobilinogen < 2.0 Ur Leukocyte Esterase Neg Urine WBC (Auto) < 1.0 Urine RBC (Auto) < 1.0 U Epithel Cells (Auto) 2.0 Vital Signs 02/17/19 14:36 Temperature 98.7 F Pulse Rate 82 Respiratory 16 Rate Blood Pressure 122/68 O2 Sat by Pulse 100 Oximetry pt reports hx of fractured teeth but has had no dmd due to insurance abc intact controlling secretions no abscess no fever no cva tenderness lmp last week preg neg no dysuria no vag dc ua noted discussed labs with pt will dc home with clinda given her pcn allergy referral to dmd as well zofran for nausea and naprosyn for pain dc home, ambulatory and nontoxic Critical care attestation.: If time is entered above; I have spent that time in minutes in the direct care of this critically ill patient, excluding procedure time. ED Disposition Clinical Impression: Dental caries, Back pain, Nausea Disposition: DC-01 TO HOME OR SELFCARE Is pt being admited?: No Does the pt Need Aspirin: No Condition: Stable Instructions: Dental Caries (ED), Abdominal Pain (ED) Additional Instructions: DIET TOLERATED MEDS ORDERED TODAY IN ER FOLLOW INSTRUCTIONS ON THE BOTTLE FOLLOW UP PCP WITHIN 48 HOURS TO ENSURE YOU ARE GETTING BETTER ACTIVITY TOLERATED MOTRIN OR TYLENOL FOR PAIN OR FEVER RETURN TO THE ER FOR WORSENING SYMPTOMS NOT RELIEVED BY YOUR MEDICATIONS. follow up with dmd ivy Prescriptions: Clindamycin [Clindamycin CAP] 150 mg PO Q6HR #40 capsule Fluconazole [Diflucan TAB] 150 mg PO ONCE #2 tablet Naproxen [Naprosyn] 500 mg PO BID PRN #20 tablet PRN Reason: Pain Ondansetron [Zofran Odt] 4 mg PO Q8HR PRN #10 tab.rapdis PRN Reason: Vomiting Referrals: BRITNEY EDUARDO MD [Primary Care Provider] - 3-5 Days Time of Disposition: 16:38
== END 2019-02-17 17:11 | disposition home or self-care (01) ==
LOC: ED 13:37
DX: K02.9 Dental caries, unspecified (principal); M54.5 Low back pain; Z88.1 Allergy status to other antibiotic agents
CPT/HCPCS: 36415; 80053; 81001; 83690; 84703; 85025; 99283